=== PATIENT | female | born 1950 ===

== ENCOUNTER → 2022-06-26 | Outpatient (CLI) | payer MEDICARE ==
[2022-06-26 10:19] VITALS: BP 153/78; PULSE 75; RESP 18; TEMP 98.4
--- NOTE | 2022-06-26 14:46 | P.PAINPG ---
PQRS Measure Charge Sheet Comment: HISTORY OF PRESENT ILLNESS: 72 yr old female w daughter in law at side as a referral from Dr. Sierra presents today w severe and chronic LBP secondary to DDD, spondylosis and facet arthropathy without myelopathy for evaluation. Pt states her pain level is currently at 2/10 in intensity, constant, localized in the lower lumbar spine w shooting towards the BLEs. Pain is provoked as high as 10/10 by evening after any activities. Pain is alleviated by meds (Bellflower, Neurontin), pain patches, ice, use of a cane for ambulation, repositioning and rest. PMH: RA, Graves Disease, HTN PSH: BL Knee Surgeries SH: Former tobacco user, no ETOH abuse, no illicit drug use. Retired on [employer] FH: CVA, HTN, CA All: See list Meds: See list REVIEW OF ORGAN SYSTEMS: CONSTITUTIONAL: No fevers or chills. No recent weight loss. NEUROLOGICAL: + numbness and tingling along the distal e xtremities. No seizure disorders or headaches. MUSCULOSKELETAL: + pain PSYCHIATRIC: Denies current depression or suicidal thoughts. Physical Examinations : Constitutional : Cooperative , not in acute distress . Neurologic : Cranial nerve II to XII intact. No focal neurological deficits. Psychiatric : alert & oriented x 3. Matching mood & appropriate affect. Judgment & insight intact. Musculoskeletal : Cervical Spine Motor strength in the deltoid and biceps: Normal right side. Normal Left side Motor strength biceps and the wrist extensors: Normal right side . Normal left side Motor strength in the triceps muscle: Normal right side. Normal left side Deep tendon reflexes: Normal at the biceps. Normal at Brachioradialis. Normal at triceps Vertebral body tenderness to deep palpation over Cervical facet loading test: positive bilaterally Spurling test: positive bilaterally Neck distraction test: positive bilaterally Anton sign: positive bilaterally Lumbar spine Motor strength lower extremities ,thigh and legs 5/5 Right side , 5/5 Left side Deep tendon reflexes : Normal Knee Jerk. Normal Ankle Jerk Vertebral body tenderness over L4 Lumbar facet Loading Test: positive Right / positive Left Range of motion of the lumbar spine Fl exion 30 degrees, extension 10 degrees Straight Leg Raise test: Left/ Right positive at degree Steven test: positive right / positive left. Severe tenderness over the Sacroiliac joint on the Right / Left sides Gaenslen test: positive bilaterally Seated flexion test: positive bilaterally. Sacral spine : Severe tenderness over the Sacroiliac joint: right side / left side Range of motion: Flexion of the lumbar spine <60 degrees Range of motion: Extension of the lumbar spine <20 degrees Gaenslen's Test positive Varun's Test positive Steven test: positive right side / left side Thigh Thrust Test Sacral Thrust Test Imaging: X ray of the lumbar spine from 08/29/17 reviewed Assessment/ Plan : Lumbar DDD Recommendation of MRI without contrast of the lumbar spine re: M51.36 Recommendation of PT 2x/ wk x 6 wks re: M51.36 Pt may return to the clinic within 6 wks for a re evaluation All questions answered. I have spent greater than 30 minutes on patient care today. Dr Cuevas was available by phone for the evaluation of this patient. The time was used to review the medical records including relevant urine studies and Prescription history (MAPs), review of the available imaging, evaluation and examination of the patient, coordination of care with the medical staff and if applicable referring physicians, as well as creation of the medical record Home Medications: Ambulatory Orders Gabapentin [Neurontin] 100 mg PO QID 06/26/22 HYDROcodone/APAP 10-325MG [Bellflower 10-325] 1 tab PO Q4HR PRN 06/26/22 Controlled Substance Measures - Controlled Substance Measures Is patient prescribed a controlled substance at discharge?: No
== END | disposition home or self-care (01) ==
LOC: PNWHC3 09:36
PROVIDERS: ATTEND Specialist
DX: M51.36 Other intervertebral disc degeneration, lumbar region (principal); M19.90 Unspecified osteoarthritis, unspecified site
CPT/HCPCS: 99211